=== PATIENT | male | born 1960 | race Caucasian/White ===

== ENCOUNTER 2018-07-05 14:06 | Inpatient (IN) | payer MEDICARE, BC ==
[2018-07-05] VITALS (8 sets, daily range): BP systolic 125–146; BP diastolic 59–79
[~2018-07-05] VITALS: Ht 170.2 cm; Wt 75.0 kg
[~2018-07-05 14:06] MED LIST: LIDOcaine 2% (20 mg/ml) 5ml cardiac syringe ONE; albumin (human) 25% 100 ML IV solution IV ONE; aminocaproic acid 250 MG/1 ML inj. ONE; calcium chloride 100 MG/1 ML inj IV ONE; heparin 10,000 units/1 ML INJ ONE; magnesium sulf 1 GM/2 ML ONE; papaverine 30 mg/ml 2ml inj. ONE; phenylephrine 10mg/ml inj. ONE; potassium Cl 2 mEq/ml inj IV ONE; sodium bicarbonate (8.4%) 1 mEq/ml syringe ONE
[2018-07-05] MEDS ORDERED: diphenhydrAMINE 25mg capsule PO PRN (14:35)
[2018-07-05] MEDS ORDERED: LORazepam 0.5 MG tablet PO PRN (14:35)
[2018-07-05] MEDS ORDERED: MOME17SP NS (14:47)
[2018-07-05] MEDS ORDERED: CARV3.12 PO (14:47)
[2018-07-05] MEDS ORDERED: GARL1TAB2 PO (14:47)
[2018-07-05] MEDS ORDERED: OMEG1CAP2 PO (14:47)
[2018-07-05] MEDS ORDERED: DICL100G15 TOP (14:47)
[2018-07-05] MEDS ORDERED: FA/M1TAB PO (14:47)
[2018-07-05] MEDS ORDERED: ASPI81TA52 PO (14:47)
[2018-07-05] MEDS ORDERED: lidoderm 5% patch TD (14:47)
[2018-07-05] MEDS ORDERED: MELO-102 PO (14:47)
[2018-07-05] MEDS ORDERED: LIDOcaine/PRILOcaine 5gm cream TP ONE (15:05)
[2018-07-05] MEDS: normal saline 1000ml 1,000 ML IV SCH (15:20)
[2018-07-05] MEDS ORDERED: nitroGLYCERIN-Tridil 50MG/D5W 250 ML IV ONE (15:32)
[2018-07-05] MEDS ORDERED: fentaNYL/PF 50MCG/1 ML 2ML syringe ONE (15:33)
[2018-07-05] MEDS ORDERED: iohexol 350MG/ML 100ml bottle IV ONE ×2 (15:33→16:24)
[2018-07-05] MEDS ORDERED: verapamil 2.5 mg/ml inj IV ONE (15:33)
[2018-07-05] MEDS ORDERED: midazolam 2 mg/2 ml injection ONE (15:33)
[2018-07-05] MEDS ORDERED: LIDOcaine 1% (10mg/ml)w/preservative injection 20ml MDV ONE (15:33)
[2018-07-05] MEDS ORDERED: heparin 1,000unit/ml 10ml vial 10 ML ONE (15:33)
[2018-07-05] MEDS ORDERED: proCHLORperazine 10 MG/2 ml inj IV PRN (17:05)
[2018-07-05] MEDS ORDERED: OXAZEpam 15mg capsule PO PRN (17:05)
[2018-07-05] MEDS ORDERED: ondansetron/PF 4mg/2ml inj IV PRN (17:05)
[2018-07-05] MEDS ORDERED: dextrose 50%-water 50ml dispensing syringe IV PRN (17:15)
[2018-07-05] MEDS ORDERED: MESSAGE TO NURSING PO ONE ×4 (17:15)
[2018-07-05] MEDS ORDERED: metoprolol tartrate 25mg tablet PO SCH (20:00)
[2018-07-05 20:27] LABS: HEMOGLOBIN 14.2 g/dl (14.0-17.9); MEAN CORPUSCULAR HEMOGLOBIN 31.9 PG (27.0-31.0); MEAN CORPUSCULAR HGB CONC 34.6 % (33.0-36.5); MEAN CORPUSCULAR VOLUME 92.4 FL (78-98); MEAN PLATELET VOLUME 8.8 FL (7.4-10.4); PLATELET COUNT 192 X10'3 (140-440); RED BLOOD COUNT 4.44 X10'6 (4.70-6.10); RED CELL DISTRIBUTION WIDTH 12.9 % (11.5-14.5); WHITE BLOOD COUNT 8.9 X10'3 (4.5-11.0)
[2018-07-05 20:36] LABS: ALANINE AMINOTRANSFERASE 48 U/L (12-78); ALBUMIN 3.4 G/DL (3.4-5.0); ALBUMIN/GLOBULIN RATIO 1.1 (1.1-1.5); ALKALINE PHOSPHATASE 76 IU/L (46-116); ANION GAP 10 (8-16); ASPARTATE AMINO TRANSFERASE 21 U/L (10-37); BILIRUBIN,TOTAL 0.4 MG/DL (0.1-1.0); BLOOD UREA NITROGEN 23 MG/DL (7-18); BUN/CREATININE RATIO 21.9 (5.4-32.0); CALCIUM 8.7 MG/DL (8.5-10.1); CHLORIDE 102 MMOL/L (99-107); CREATININE 1.05 MG/DL (0.60-1.10); GLUCOSE 130 MG/DL (70-104); POTASSIUM 3.7 MMOL/L (3.5-5.1); SODIUM 137 MMOL/L (135-145); TOTAL PROTEIN 6.6 G/DL (6.4-8.2); eGFR 73 ML/MIN
[2018-07-05 20:56] LABS: PROTHROMBIN TIME 10.6 SECONDS (9.0-12.0)
[2018-07-05 20:57] LABS: PARTIAL THROMBOPLASTIN TIME 30 SECONDS (22-32)
[2018-07-05 21:04] LABS: HEMOGLOBIN A1C 6.1 % (4.5-6.2)
[2018-07-05] MEDS: carVEDilol 3.125mg tablet PO SCH (22:31)
[2018-07-06 03:00] VITALS: BP 142/57
[2018-07-06] MEDS: normal saline 1000ml 1,000 ML IV SCH ×2 (03:12→11:16)
[2018-07-06 05:09] LABS: BASOPHILS % (AUTO) 0.3 % (0-1); EOSINOPHILS # (AUTO) 0.5 X10'3 (0-0.9); EOSINOPHILS % (AUTO) 5.2 % (0-6); HEMATOCRIT 43.7 % (42.0-52.0); HEMOGLOBIN 14.8 g/dl (14.0-17.9); LYMPHOCYTES # (AUTO) 3.2 X10'3 (1.1-4.8); LYMPHOCYTES % (AUTO) 35.6 % (21-51); MEAN CORPUSCULAR HEMOGLOBIN 31.3 PG (27.0-31.0); MEAN CORPUSCULAR HGB CONC 33.9 % (33.0-36.5); MEAN CORPUSCULAR VOLUME 92.2 FL (78-98); MEAN PLATELET VOLUME 9.2 FL (7.4-10.4); MONOCYTES # (AUTO) 0.7 X10'3 (0-0.9); MONOCYTES % (AUTO) 7.4 % (2-12); NEUTROPHILS # (AUTO) 4.6 X10'3 (1.8-7.7); NEUTROPHILS % (AUTO) 51.5 % (42-75); PLATELET COUNT 199 X10'3 (140-440); RED BLOOD COUNT 4.74 X10'6 (4.70-6.10); RED CELL DISTRIBUTION WIDTH 13.1 % (11.5-14.5)
[2018-07-06 05:22] LABS: ALBUMIN 3.6 G/DL (3.4-5.0); ANION GAP 11 (8-16); BLOOD UREA NITROGEN 19 MG/DL (7-18); BUN/CREATININE RATIO 18.8 (5.4-32.0); CHLORIDE 104 MMOL/L (99-107); CREATININE 1.01 MG/DL (0.60-1.10); GLUCOSE 96 MG/DL (70-104); POTASSIUM 4.2 MMOL/L (3.5-5.1); SODIUM 138 MMOL/L (135-145); TOTAL CARBON DIOXIDE 23.5 MMOL/L (24-32); eGFR 76 ML/MIN
[2018-07-06 05:26] LABS: PROTHROMBIN TIME 10.4 SECONDS (9.0-12.0)
[2018-07-06 06:00] VITALS: BP 142/60
[2018-07-06] MEDS ORDERED: vancomycin/NS 1 GM ADD-VANTAGE 250 ML IV ONE (06:00)
[2018-07-06] MEDS ORDERED: cefazolin/dext.iso 2gm/50ml 50 ML IV ONE (06:00)
[2018-07-06] MEDS ORDERED: non-formulary drug (Omega-3 Fatty Acids/Fish Oil (Fish Oil 1,000 mg Capsule) 1 TAB) PO SCH (08:00)
[2018-07-06] MEDS ORDERED: atorvastatin 20mg tablet PO SCH (08:00)
[2018-07-06] MEDS ORDERED: aspirin 81mg tablet.DR PO SCH (08:00)
[2018-07-06] MEDS ORDERED: mupirocin 2% ointment 22GM NS SCH (08:00)
[2018-07-06] MEDS: fluticasone nasal spray 16GM bottle NS SCH (08:00)
[2018-07-06] MEDS ORDERED: insulin Lispro (HumaLOG) vial - multi-dose SQ SCH (09:00)
[2018-07-06] MEDS: carVEDilol 3.125mg tablet PO SCH ×2 (09:53→21:06)
[2018-07-06] MEDS: multivitamins, therapeutics tablet PO SCH (09:55)
[2018-07-06] MEDS: LIDOcaine 5% patch TP SCH (09:59)
[2018-07-06] MEDS ORDERED: MESSAGE TO NURSING PO ONE (10:00)
[2018-07-06 11:00] VITALS: BP 130/61
[2018-07-06 11:16] LABS: ABG BASE EXCESS -1.2 mmol/L (-2.0-3.0); ABG HCO3 22.3 mmol/L (22.0-26.0); ABG OXYGEN SATURATION 96.8 % (95-98); ABG PCO2 (T) 33.9 mmHg (35.0-48.0); ABG PH (T) 7.435 (7.350-7.450); ALLEN'S TEST Positive; FCOHb 0.4 % (0.5-1.5); FMetHb 0.1 % (0.3-1.12); FO2Hb 96.3 % (94-100); TOTAL HEMOGLOBIN 15.1 G/dl (14.0-18.0)
[2018-07-06] MEDS ORDERED: albuterol 2.5 MG/3 ML nebule NEB ONE (11:25)
[2018-07-06] MEDS ORDERED: LIDOcaine 5% patch TP ONE (14:50)
[2018-07-06 15:00] VITALS: BP 158/73
[2018-07-06] MEDS ORDERED: ringers solution, lacted 1,000 ML IV ONE (16:10)
[2018-07-06 19:00] VITALS: BP 149/53
[2018-07-06 23:00] VITALS: BP 143/58
[2018-07-07] VITALS (18 sets, daily range): BP systolic 96–159; BP diastolic 50–63
[2018-07-07] MEDS ORDERED: famotidine 20mg tablet PO ONE (05:00)
[2018-07-07] MEDS ORDERED: LORazepam 2 mg/ml vial ONE (05:08)
[2018-07-07] MEDS: insulin regular, human inj. 100 UNITS in normal saline 100ml IV soln 100 ML IV SCH ×4 (06:00→12:15)
[2018-07-07] MEDS ORDERED: LORazepam 2 mg/ml vial IV ONE (06:00)
[2018-07-07] MEDS ORDERED: isoflurane 100ml inhalation liquid IH ONE (06:50)
[2018-07-07] MEDS ORDERED: protamine sulf. 10mg/ml inj. IV ONE (06:50)
[2018-07-07] MEDS ORDERED: INSULIN R 100 UNIT in NS 100ML (1 UNIT/1 ML) BAG IV ONE (06:50)
[2018-07-07] MEDS ORDERED: nitroGLYCERIN in D5W 50mg/250ml (Tridil) infusion IV ONE (06:50)
[2018-07-07] MEDS ORDERED: niCARDipine in NS 40mg/200ml (0.2mg/ml) IVPB IV ONE (06:50)
[2018-07-07] MEDS ORDERED: aminocaproic acid 250 MG/1 ML inj. ONE (06:50)
[2018-07-07] MEDS ORDERED: SUFENTANIL CITRATE 50 MCG/ML 2ml ampule IV ONE (06:55)
[2018-07-07] MEDS ORDERED: propofol inj 20 ML IV ONE (06:56)
[2018-07-07] MEDS ORDERED: rocuronium 10mg/ml inj IV ONE (06:56)
[2018-07-07] MEDS ORDERED: pancuronium br 1mg/ml inj IV ONE (07:35)
[2018-07-07 07:40] LABS: ABG BASE EXCESS -3.4 mmol/L (-2.0-3.0); ABG HCO3 21.4 mmol/L (22.0-26.0); ABG OXYGEN SATURATION 99.4 % (95-98); ABG PCO2 37.7 mmHg (35.0-45.0); ABG PH 7.372 (7.350-7.450); ABG PO2 297.7 mmHg (60.0-100.0); CL (ABG) 110 mmol/L (99-107); FCOHb 0.4 % (0.5-1.5); FMetHb 0.4 % (0.3-1.12); FO2Hb 98.6 % (94-100); GLUCOSE (ABG) 106 mg/dl (70-105); IONIZED CA (ABG) 1.19 mmol/L (1.03-1.32); K (ABG) 3.8 mmol/L (3.3-5.1); NA (ABG) 139 mmol/L (135-145)
[2018-07-07] MEDS ORDERED: papaverine 30 mg/ml 2ml inj. IA ONE (07:54)
[2018-07-07] MEDS ORDERED: heparin 10,000 units/1 ML INJ IR ONE (07:54)
[2018-07-07 08:40] LABS: ABG BASE EXCESS -5.9 mmol/L (-2.0-3.0); ABG HCO3 18.3 mmol/L (22.0-26.0); ABG OXYGEN SATURATION 98.3 % (95-98); ABG PCO2 32.1 mmHg (35.0-45.0); ABG PH 7.374 (7.350-7.450); ABG PO2 130.5 mmHg (60.0-100.0); CL (ABG) 108 mmol/L (99-107); FCOHb 0.4 % (0.5-1.5); FMetHb 0.2 % (0.3-1.12); FO2Hb 97.7 % (94-100); GLUCOSE (ABG) 117 mg/dl (70-105); IONIZED CA (ABG) 1.17 mmol/L (1.03-1.32); K (ABG) 3.9 mmol/L (3.3-5.1); NA (ABG) 136 mmol/L (135-145)
[2018-07-07 09:16] LABS: ACT @ 1.70 U 336 SEC (193-297); ACT @ 2.84 U 439 SEC (260-420); BASELINE ACT 148 SEC (101-148); PATIENT WEIGHT 75.0k KG
[2018-07-07 09:16] LABS: ABG BASE EXCESS -2.2 mmol/L (-2.0-3.0); ABG HCO3 22.2 mmol/L (22.0-26.0); ABG OXYGEN SATURATION 98.9 % (95-98); ABG PCO2 36.8 mmHg (35.0-45.0); ABG PH 7.399 (7.350-7.450); ABG PO2 377.4 mmHg (60.0-100.0); CL (ABG) 107 mmol/L (99-107); FCOHb 0.3 % (0.5-1.5); FMetHb 0.5 % (0.3-1.12); FO2Hb 98.1 % (94-100); GLUCOSE (ABG) 116 mg/dl (70-105); IONIZED CA (ABG) 0.99 mmol/L (1.03-1.32); K (ABG) 4.9 mmol/L (3.3-5.1); NA (ABG) 132 mmol/L (135-145); TOTAL HEMOGLOBIN 10.2 G/dl (14.0-18.0)
[2018-07-07 09:30] LABS: ABG BASE EXCESS 0.6 mmol/L (-2.0-3.0); ABG HCO3 25.2 mmol/L (22.0-26.0); ABG OXYGEN SATURATION 98.8 % (95-98); ABG PCO2 40.3 mmHg (35.0-45.0); ABG PH 7.414 (7.350-7.450); ABG PO2 332.5 mmHg (60.0-100.0); CL (ABG) 107 mmol/L (99-107); FCOHb 0.3 % (0.5-1.5); FMetHb 0.5 % (0.3-1.12); GLUCOSE (ABG) 130 mg/dl (70-105); IONIZED CA (ABG) 1.01 mmol/L (1.03-1.32); K (ABG) 5.5 mmol/L (3.3-5.1); NA (ABG) 134 mmol/L (135-145); TOTAL HEMOGLOBIN 10.3 G/dl (14.0-18.0)
[2018-07-07 10:11] LABS: ABG BASE EXCESS -3.3 mmol/L (-2.0-3.0); ABG HCO3 22.5 mmol/L (22.0-26.0); ABG OXYGEN SATURATION 98.5 % (95-98); ABG PCO2 43.7 mmHg (35.0-45.0); ABG PO2 286.2 mmHg (60.0-100.0); CL (ABG) 98 mmol/L (99-107); FCOHb 0.3 % (0.5-1.5); FMetHb 0.5 % (0.3-1.12); FO2Hb 97.7 % (94-100); GLUCOSE (ABG) 124 mg/dl (70-105); IONIZED CA (ABG) 1.26 mmol/L (1.03-1.32); K (ABG) 4.6 mmol/L (3.3-5.1); NA (ABG) 126 mmol/L (135-145); TOTAL HEMOGLOBIN 9.6 G/dl (14.0-18.0)
[2018-07-07 10:41] LABS: ABG BASE EXCESS -1.3 mmol/L (-2.0-3.0); ABG HCO3 22.9 mmol/L (22.0-26.0); ABG OXYGEN SATURATION 98.5 % (95-98); ABG PCO2 36.6 mmHg (35.0-45.0); ABG PH 7.415 (7.350-7.450); ABG PO2 171.3 mmHg (60.0-100.0); CL (ABG) 109 mmol/L (99-107); FCOHb 0.3 % (0.5-1.5); FMetHb 0.6 % (0.3-1.12); FO2Hb 97.6 % (94-100); GLUCOSE (ABG) 124 mg/dl (70-105); IONIZED CA (ABG) 1.25 mmol/L (1.03-1.32); K (ABG) 4.4 mmol/L (3.3-5.1); NA (ABG) 136 mmol/L (135-145); TOTAL HEMOGLOBIN 11.3 G/dl (14.0-18.0)
[2018-07-07 10:46] LABS: ACTIVATED CLOTTING TIME 130 SEC (101-148)
[2018-07-07] MEDS ORDERED: sodium phosphate inj. 15 MMOL in dextrose 5%-water 150 ML IV PRN (11:00)
[2018-07-07] MEDS ORDERED: normal saline 250ml IV soln 250 ML IV PRN (11:00)
[2018-07-07] MEDS ORDERED: pantoprazole 40 MG vial IV ONE (11:00)
[2018-07-07] MEDS ORDERED: metoclopramide 5 mg/ml inj IV PRN (11:00)
[2018-07-07] MEDS ORDERED: Neutra Phos packet PO PRN (11:00)
[2018-07-07] MEDS ORDERED: DOPamine 400mg/D5W 250ml 250 ML IV PRN ×2 (11:00→11:49)
[2018-07-07] MEDS ORDERED: magnesium 2GM in 50ml NS 50 ML IV PRN (11:00)
[2018-07-07] MEDS ORDERED: ondansetron/PF 4mg/2ml inj IV PRN (11:00)
[2018-07-07] MEDS ORDERED: dextrose 50%-water 50ml dispensing syringe IV PRN (11:00)
[2018-07-07] MEDS ORDERED: potassium Cl 20mEq/100mL bag 100 ML IV PRN ×2 (11:00)
[2018-07-07] MEDS ORDERED: albuterol 2.5 MG/3 ML nebule NEB SCH (11:00)
[2018-07-07] MEDS ORDERED: albumin (Human) 5% 250ml 250 ML IV PRN (11:00)
[2018-07-07] MEDS ORDERED: insulin regular, human inj. 100 UNITS in normal saline 100ml IV soln 100 ML IV SCH ×2 (11:00)
[2018-07-07] MEDS ORDERED: nitroGLYCERIN-Tridil 50MG/D5W 250 ML IV PRN ×2 (11:00→11:49)
[2018-07-07] MEDS ORDERED: niCARDipine-NS 40mg/200ml IVPB 200 ML IV PRN ×2 (11:00→11:50)
[2018-07-07] MEDS ORDERED: magnesium hydroxide 30ml (MOM) UD suspension PO PRN (11:00)
[2018-07-07] MEDS ORDERED: sodium phosphate inj. 30 MMOL in dextrose 5%-water 250 ML IV PRN (11:00)
[2018-07-07] MEDS ORDERED: acetaminophen 325mg tablet PO PRN (11:00)
[2018-07-07] MEDS ORDERED: morphine 4 MG/ML inj SYRINge IV PRN ×2 (11:00)
[2018-07-07 11:26] LABS: ABG HCO3 26.4 mmol/L (22.0-26.0); ABG PCO2 (T) 44.1 mmHg (35.0-48.0); ABG PH (T) 7.393 (7.350-7.450); ABG PO2 (T) 122.1 mmHg (83-108); FCOHb 0.1 % (0.5-1.5); FMetHb 0.3 % (0.3-1.12); FO2Hb 97.6 % (94-100); MINUTE VOLUME 6 L/min; PATIENT TEMPERATURE 36.7; PEEP 5 cm H2O; RESPIRATORY RATE 12 b/min; RESPIRATORY RATE (OBSERVED) 12 b/min; TIDAL VOLUME 550 mL; TOTAL HEMOGLOBIN 13.8 G/dl (14.0-18.0)
[2018-07-07 11:50] LABS: BASOPHILS % (AUTO) 0 % (0-1); EOSINOPHILS # (AUTO) 0.1 X10'3 (0-0.9); EOSINOPHILS % (AUTO) 0.7 % (0-6); HEMATOCRIT 37.9 % (42.0-52.0); LYMPHOCYTES # (AUTO) 1.4 X10'3 (1.1-4.8); LYMPHOCYTES % (AUTO) 8.1 % (21-51); MEAN CORPUSCULAR HEMOGLOBIN 31.7 PG (27.0-31.0); MEAN CORPUSCULAR HGB CONC 34.3 % (33.0-36.5); MEAN CORPUSCULAR VOLUME 92.5 FL (78-98); MEAN PLATELET VOLUME 8.9 FL (7.4-10.4); MONOCYTES # (AUTO) 0.6 X10'3 (0-0.9); MONOCYTES % (AUTO) 3.1 % (2-12); NEUTROPHILS # (AUTO) 15.7 X10'3 (1.8-7.7); NEUTROPHILS % (AUTO) 88.1 % (42-75); PLATELET COUNT 143 X10'3 (140-440); RED BLOOD COUNT 4.09 X10'6 (4.70-6.10); RED CELL DISTRIBUTION WIDTH 13.1 % (11.5-14.5); WHITE BLOOD COUNT 17.8 X10'3 (4.5-11.0)
[2018-07-07] MEDS ORDERED: albuterol 2.5 MG/3 ML nebule NEB PRN (11:55)
[2018-07-07 12:13] LABS: INR 1.2 INR; PARTIAL THROMBOPLASTIN TIME 25 SECONDS (22-32); PROTHROMBIN TIME 11.6 SECONDS (9.0-12.0)
[2018-07-07] MEDS: fluticasone nasal spray 16GM bottle NS SCH (12:17)
[2018-07-07] MEDS: LIDOcaine 5% patch TP SCH (12:17)
[2018-07-07 12:18] LABS: ALANINE AMINOTRANSFERASE 36 U/L (12-78); ALBUMIN 2.9 G/DL (3.4-5.0); ALBUMIN/GLOBULIN RATIO 1.2 (1.1-1.5); ALKALINE PHOSPHATASE 57 IU/L (46-116); ANION GAP 8 (8-16); ASPARTATE AMINO TRANSFERASE 32 U/L (10-37); BILIRUBIN,TOTAL 0.8 MG/DL (0.1-1.0); BLOOD UREA NITROGEN 14 MG/DL (7-18); BUN/CREATININE RATIO 14.3 (5.4-32.0); CALCIUM 8.8 MG/DL (8.5-10.1); CHLORIDE 109 MMOL/L (99-107); CREATININE 0.98 MG/DL (0.60-1.10); GLUCOSE 120 MG/DL (70-104); MAGNESIUM 2.8 MG/DL (1.5-2.4); SODIUM 144 MMOL/L (135-145); TOTAL CARBON DIOXIDE 27.1 MMOL/L (24-32); TOTAL PROTEIN 5.3 G/DL (6.4-8.2); eGFR 79 ML/MIN
[2018-07-07] MEDS: multivitamins, therapeutics tablet PO SCH (12:18)
[2018-07-07] MEDS: mupirocin 2% nasal ointment 1gm UD NS SCH ×3 (12:19→20:30)
[2018-07-07 12:20] LABS: POTASSIUM 3.8 MMOL/L (3.5-5.1)
[2018-07-07] MEDS: sodium chloride 0.45% 1,000 ML IV SCH (12:52)
[2018-07-07] MEDS: insulin Lispro (HumaLOG) vial - multi-dose SQ SCH ×2 (13:00→17:17)
[2018-07-07] MEDS: potassium Cl 20mEq/100mL bag 100 ML IV PRN ×4 (13:27→19:51)
[2018-07-07] MEDS: ceFAZolin 1GM/D5W- ADD-VANTAGE 50 ML IV SCH (15:47)
[2018-07-07 16:20] LABS: ABG BASE EXCESS -2.8 mmol/L (-2.0-3.0); ABG HCO3 21.9 mmol/L (22.0-26.0); ABG OXYGEN SATURATION 96.8 % (95-98); ABG PCO2 (T) 37.5 mmHg (35.0-48.0); ABG PH (T) 7.382 (7.350-7.450); FCOHb 0.3 % (0.5-1.5); FMetHb 0.2 % (0.3-1.12); FO2Hb 96.3 % (94-100); MINUTE VOLUME 9 L/min; PATIENT TEMPERATURE 36.7; PEEP 5 cm H2O; RESPIRATORY RATE (OBSERVED) 15 b/min; TOTAL HEMOGLOBIN 14.3 G/dl (14.0-18.0)
[2018-07-07 17:49] LABS: BASOPHILS % (AUTO) 0 % (0-1); EOSINOPHILS % (AUTO) 0 % (0-6); HEMATOCRIT 35.2 % (42.0-52.0); MEAN CORPUSCULAR HEMOGLOBIN 31.7 PG (27.0-31.0); MEAN CORPUSCULAR HGB CONC 34.1 % (33.0-36.5); MEAN CORPUSCULAR VOLUME 92.9 FL (78-98); MEAN PLATELET VOLUME 9.2 FL (7.4-10.4); MONOCYTES # (AUTO) 0.4 X10'3 (0-0.9); MONOCYTES % (AUTO) 2.8 % (2-12); NEUTROPHILS # (AUTO) 14.6 X10'3 (1.8-7.7); NEUTROPHILS % (AUTO) 91.2 % (42-75); PLATELET COUNT 141 X10'3 (140-440); RED BLOOD COUNT 3.79 X10'6 (4.70-6.10)
[2018-07-07 17:51] LABS: ALBUMIN 3.2 G/DL (3.4-5.0); ANION GAP 7 (8-16); BLOOD UREA NITROGEN 15 MG/DL (7-18); BUN/CREATININE RATIO 14.9 (5.4-32.0); CALCIUM 8.4 MG/DL (8.5-10.1); CHLORIDE 112 MMOL/L (99-107); CREATININE 1.01 MG/DL (0.60-1.10); GLUCOSE 165 MG/DL (70-104); MAGNESIUM 2.1 MG/DL (1.5-2.4); PHOSPHORUS 2.8 MG/DL (2.3-4.5); POTASSIUM 3.9 MMOL/L (3.5-5.1); SODIUM 143 MMOL/L (135-145); TOTAL CARBON DIOXIDE 24.3 MMOL/L (24-32); eGFR 76 ML/MIN
[2018-07-07] MEDS: docusate sod 100mg capsule PO SCH (20:05)
[2018-07-07] MEDS: vancomycin/NS 1 GM ADD-VANTAGE 250 ML IV SCH (21:01)
[2018-07-07 23:10] LABS: BASOPHILS % (AUTO) 0.1 % (0-1); EOSINOPHILS # (AUTO) 0.3 X10'3 (0-0.9); EOSINOPHILS % (AUTO) 1.7 % (0-6); HEMATOCRIT 35.9 % (42.0-52.0); HEMOGLOBIN 12.2 g/dl (14.0-17.9); LYMPHOCYTES # (AUTO) 1.3 X10'3 (1.1-4.8); LYMPHOCYTES % (AUTO) 8.1 % (21-51); MEAN CORPUSCULAR HEMOGLOBIN 31.5 PG (27.0-31.0); MEAN CORPUSCULAR HGB CONC 33.9 % (33.0-36.5); MEAN CORPUSCULAR VOLUME 92.8 FL (78-98); MEAN PLATELET VOLUME 8.6 FL (7.4-10.4); MONOCYTES # (AUTO) 0.7 X10'3 (0-0.9); MONOCYTES % (AUTO) 4.1 % (2-12); NEUTROPHILS # (AUTO) 13.9 X10'3 (1.8-7.7); PLATELET COUNT 145 X10'3 (140-440); RED BLOOD COUNT 3.87 X10'6 (4.70-6.10); RED CELL DISTRIBUTION WIDTH 13.3 % (11.5-14.5); WHITE BLOOD COUNT 16.1 X10'3 (4.5-11.0)
[2018-07-07 23:20] LABS: ALBUMIN 3.2 G/DL (3.4-5.0); ANION GAP 11 (8-16); BLOOD UREA NITROGEN 13 MG/DL (7-18); BUN/CREATININE RATIO 13.7 (5.4-32.0); CALCIUM 8.4 MG/DL (8.5-10.1); CHLORIDE 110 MMOL/L (99-107); CREATININE 0.95 MG/DL (0.60-1.10); GLUCOSE 122 MG/DL (70-104); MAGNESIUM 1.8 MG/DL (1.5-2.4); POTASSIUM 3.8 MMOL/L (3.5-5.1); SODIUM 143 MMOL/L (135-145); TOTAL CARBON DIOXIDE 21.9 MMOL/L (24-32); eGFR 81 ML/MIN
[2018-07-08] VITALS (24 sets, daily range): BP systolic 100–146; BP diastolic 48–67
[2018-07-08] MEDS: ceFAZolin 1GM/D5W- ADD-VANTAGE 50 ML IV SCH ×3 (00:21→15:31)
[2018-07-08] MEDS: HYDROcodone/acetaminophen 10/325mg tab PO PRN ×3 (00:21→22:31)
[2018-07-08] MEDS: magnesium 4gm in 100ml NS 100 ML IV PRN (00:45)
[2018-07-08] MEDS: potassium Cl 20mEq/100mL bag 100 ML IV PRN ×2 (02:17→04:10)
[2018-07-08 04:12] LABS: BASOPHILS % (AUTO) 0 % (0-1); EOSINOPHILS # (AUTO) 0.4 X10'3 (0-0.9); HEMOGLOBIN 11.8 g/dl (14.0-17.9); LYMPHOCYTES # (AUTO) 1.4 X10'3 (1.1-4.8); LYMPHOCYTES % (AUTO) 7.4 % (21-51); MEAN CORPUSCULAR HEMOGLOBIN 31.4 PG (27.0-31.0); MEAN CORPUSCULAR HGB CONC 33.7 % (33.0-36.5); MEAN CORPUSCULAR VOLUME 93.1 FL (78-98); MEAN PLATELET VOLUME 9.3 FL (7.4-10.4); MONOCYTES # (AUTO) 1.1 X10'3 (0-0.9); MONOCYTES % (AUTO) 5.8 % (2-12); NEUTROPHILS % (AUTO) 84.8 % (42-75); PLATELET COUNT 139 X10'3 (140-440); RED BLOOD COUNT 3.76 X10'6 (4.70-6.10); RED CELL DISTRIBUTION WIDTH 13.3 % (11.5-14.5); WHITE BLOOD COUNT 18.8 X10'3 (4.5-11.0)
[2018-07-08 04:27] LABS: INR 1.1 INR; PARTIAL THROMBOPLASTIN TIME 28 SECONDS (22-32); PROTHROMBIN TIME 11.1 SECONDS (9.0-12.0)
[2018-07-08 04:30] LABS: ALANINE AMINOTRANSFERASE 32 U/L (12-78); ALBUMIN 3.2 G/DL (3.4-5.0); ALBUMIN/GLOBULIN RATIO 1.3 (1.1-1.5); ALKALINE PHOSPHATASE 48 IU/L (46-116); ANION GAP 11 (8-16); ASPARTATE AMINO TRANSFERASE 35 U/L (10-37); BILIRUBIN,TOTAL 0.5 MG/DL (0.1-1.0); BLOOD UREA NITROGEN 13 MG/DL (7-18); BUN/CREATININE RATIO 14.9 (5.4-32.0); CALCIUM 8.8 MG/DL (8.5-10.1); CHLORIDE 108 MMOL/L (99-107); CREATININE 0.87 MG/DL (0.60-1.10); GLUCOSE 132 MG/DL (70-104); MAGNESIUM 2.9 MG/DL (1.5-2.4); PHOSPHORUS 4.1 MG/DL (2.3-4.5); POTASSIUM 3.9 MMOL/L (3.5-5.1); SODIUM 141 MMOL/L (135-145); TOTAL CARBON DIOXIDE 21.7 MMOL/L (24-32); TOTAL PROTEIN 5.6 G/DL (6.4-8.2); eGFR 90 ML/MIN
[2018-07-08] MEDS: insulin regular, human inj. 100 UNITS in normal saline 100ml IV soln 100 ML IV SCH ×2 (06:00)
[2018-07-08] MEDS ORDERED: dextrose 50%-water 50ml dispensing syringe IV PRN ×2 (07:55)
[2018-07-08] MEDS ORDERED: MESSAGE TO PHARMACY PO ONE (07:55)
[2018-07-08] MEDS ORDERED: glucagon, human recombinant 1mg kit SUBCUT PRN (07:55)
[2018-07-08] MEDS ORDERED: dextrose ORAL solution 15 GM/59 ML bottle PO PRN ×2 (07:55)
[2018-07-08] MEDS ORDERED: insulin Lispro (HumaLOG) vial - multi-dose SQ SCH (07:55)
[2018-07-08] MEDS: atorvastatin 10mg tablet PO SCH (08:00)
[2018-07-08] MEDS: aspirin 325mg tablet, delayed-release (Ecotrin) PO SCH (08:16)
[2018-07-08] MEDS: metoprolol tartrate 12.5mg (1/2 tablet) PO SCH ×2 (08:16→20:05)
[2018-07-08] MEDS: multivitamins, therapeutics tablet PO SCH (08:17)
[2018-07-08] MEDS: docusate sod 100mg capsule PO SCH ×2 (08:17→20:05)
[2018-07-08] MEDS: mupirocin 2% nasal ointment 1gm UD NS SCH ×2 (08:17→20:00)
[2018-07-08] MEDS: LIDOcaine 5% patch TP SCH (08:19)
[2018-07-08] MEDS: vancomycin/NS 1 GM ADD-VANTAGE 250 ML IV SCH ×2 (08:21→20:05)
[2018-07-08] MEDS: NASONEX BOTHNARES SCH (14:09)
[2018-07-08] MEDS: insulin glargine (Lantus) pen - multi-dose SQ SCH (21:00)
[2018-07-09] VITALS (24 sets, daily range): BP systolic 91–133; BP diastolic 55–69
[2018-07-09] MEDS: ceFAZolin 1GM/D5W- ADD-VANTAGE 50 ML IV SCH (00:40)
[2018-07-09 03:07] LABS: BASOPHILS % (AUTO) 0 % (0-1); EOSINOPHILS # (AUTO) 0.3 X10'3 (0-0.9); EOSINOPHILS % (AUTO) 1.6 % (0-6); HEMATOCRIT 32.3 % (42.0-52.0); HEMOGLOBIN 10.9 g/dl (14.0-17.9); LYMPHOCYTES # (AUTO) 1.8 X10'3 (1.1-4.8); MEAN CORPUSCULAR HEMOGLOBIN 31.6 PG (27.0-31.0); MEAN CORPUSCULAR HGB CONC 33.6 % (33.0-36.5); MEAN CORPUSCULAR VOLUME 93.9 FL (78-98); MEAN PLATELET VOLUME 9.4 FL (7.4-10.4); MONOCYTES % (AUTO) 5.9 % (2-12); NEUTROPHILS # (AUTO) 14.6 X10'3 (1.8-7.7); NEUTROPHILS % (AUTO) 82.5 % (42-75); PLATELET COUNT 133 X10'3 (140-440); RED BLOOD COUNT 3.44 X10'6 (4.70-6.10); RED CELL DISTRIBUTION WIDTH 13.3 % (11.5-14.5); WHITE BLOOD COUNT 17.7 X10'3 (4.5-11.0)
[2018-07-09 03:13] LABS: ANION GAP 6 (8-16); BLOOD UREA NITROGEN 21 MG/DL (7-18); BUN/CREATININE RATIO 22.3 (5.4-32.0); CALCIUM 8.5 MG/DL (8.5-10.1); CHLORIDE 104 MMOL/L (99-107); CREATININE 0.94 MG/DL (0.60-1.10); GLUCOSE 129 MG/DL (70-104); PHOSPHORUS 3.4 MG/DL (2.3-4.5); POTASSIUM 4.3 MMOL/L (3.5-5.1); SODIUM 137 MMOL/L (135-145); TOTAL CARBON DIOXIDE 26.6 MMOL/L (24-32); eGFR 82 ML/MIN
[2018-07-09] MEDS: mupirocin 2% nasal ointment 1gm UD NS SCH (08:00)
[2018-07-09] MEDS: LIDOcaine 5% patch TP SCH (08:00)
[2018-07-09] MEDS: metoprolol tartrate 12.5mg (1/2 tablet) PO SCH (08:24)
[2018-07-09] MEDS: multivitamins, therapeutics tablet PO SCH (08:24)
[2018-07-09] MEDS: atorvastatin 10mg tablet PO SCH (08:25)
[2018-07-09] MEDS: docusate sod 100mg capsule PO SCH ×2 (08:25→20:39)
[2018-07-09] MEDS: pantoprazole 40mg Tablet.DR PO SCH (08:26)
[2018-07-09] MEDS: aspirin 325mg tablet, delayed-release (Ecotrin) PO SCH (08:26)
[2018-07-09] MEDS: NASONEX BOTHNARES SCH (08:27)
[2018-07-09] MEDS: HYDROcodone/acetaminophen 10/325mg tab PO PRN (08:55)
[2018-07-09] MEDS ORDERED: magnesium hydroxide 30ml (MOM) UD suspension PO ONE (11:50)
[2018-07-09] MEDS: sodium chloride 0.45% 1,000 ML IV SCH (12:05)
[2018-07-09] MEDS: insulin glargine (Lantus) pen - multi-dose SQ SCH (18:37)
[2018-07-09] MEDS: carVEDilol 3.125mg tablet PO SCH (20:39)
[2018-07-10] VITALS (24 sets, daily range): BP systolic 90–143; BP diastolic 55–75
[2018-07-10 02:20] LABS: BASOPHILS % (AUTO) 0.2 % (0-1); EOSINOPHILS % (AUTO) 0.1 % (0-6); HEMATOCRIT 32.2 % (42.0-52.0); HEMOGLOBIN 10.9 g/dl (14.0-17.9); LYMPHOCYTES # (AUTO) 2.8 X10'3 (1.1-4.8); LYMPHOCYTES % (AUTO) 18.6 % (21-51); MEAN CORPUSCULAR HEMOGLOBIN 31.7 PG (27.0-31.0); MEAN CORPUSCULAR HGB CONC 33.9 % (33.0-36.5); MEAN CORPUSCULAR VOLUME 93.6 FL (78-98); MONOCYTES # (AUTO) 1.1 X10'3 (0-0.9); MONOCYTES % (AUTO) 7.3 % (2-12); NEUTROPHILS # (AUTO) 11.2 X10'3 (1.8-7.7); NEUTROPHILS % (AUTO) 73.8 % (42-75); PLATELET COUNT 148 X10'3 (140-440); RED BLOOD COUNT 3.44 X10'6 (4.70-6.10); RED CELL DISTRIBUTION WIDTH 13.4 % (11.5-14.5); WHITE BLOOD COUNT 15.2 X10'3 (4.5-11.0)
[2018-07-10 02:33] LABS: ALBUMIN 2.9 G/DL (3.4-5.0); ANION GAP 9 (8-16); BLOOD UREA NITROGEN 22 MG/DL (7-18); BUN/CREATININE RATIO 26.2 (5.4-32.0); CALCIUM 8.7 MG/DL (8.5-10.1); CHLORIDE 102 MMOL/L (99-107); CREATININE 0.84 MG/DL (0.60-1.10); GLUCOSE 106 MG/DL (70-104); MAGNESIUM 1.8 MG/DL (1.5-2.4); PHOSPHORUS 3.5 MG/DL (2.3-4.5); POTASSIUM 4.1 MMOL/L (3.5-5.1); SODIUM 139 MMOL/L (135-145); TOTAL CARBON DIOXIDE 27.7 MMOL/L (24-32); eGFR > 90 ML/MIN
[2018-07-10] MEDS: magnesium 4gm in 100ml NS 100 ML IV PRN (03:32)
[2018-07-10] MEDS: NASONEX BOTHNARES SCH (07:22)
[2018-07-10] MEDS: carVEDilol 3.125mg tablet PO SCH ×2 (07:23→20:11)
[2018-07-10] MEDS: aspirin 81mg tablet.DR PO SCH (07:23)
[2018-07-10] MEDS: pantoprazole 40mg Tablet.DR PO SCH (07:23)
[2018-07-10] MEDS: docusate sod 100mg capsule PO SCH ×2 (07:23→20:10)
[2018-07-10] MEDS: atorvastatin 10mg tablet PO SCH (07:23)
[2018-07-10] MEDS: multivitamins, therapeutics tablet PO SCH (07:23)
[2018-07-10] MEDS: LIDOcaine 5% patch TP SCH ×2 (07:24→07:28)
[2018-07-10] MEDS ORDERED: potassium Cl 20 mEq SR tablet PO PRN ×2 (11:00)
[2018-07-10] MEDS ORDERED: magnesium Cl slow-release 64mg tablet PO PRN (11:00)
[2018-07-10] MEDS: insulin glargine (Lantus) pen - multi-dose SQ SCH (21:00)
[2018-07-10] MEDS: HYDROcodone/acetaminophen 10/325mg tab PO PRN (21:58)
[2018-07-11] VITALS (10 sets, daily range): BP systolic 93–136; BP diastolic 52–71
[2018-07-11 05:12] LABS: BASOPHILS % (AUTO) 0.2 % (0-1); EOSINOPHILS # (AUTO) 0.4 X10'3 (0-0.9); EOSINOPHILS % (AUTO) 3.6 % (0-6); HEMATOCRIT 34.3 % (42.0-52.0); HEMOGLOBIN 11.8 g/dl (14.0-17.9); LYMPHOCYTES # (AUTO) 3.8 X10'3 (1.1-4.8); LYMPHOCYTES % (AUTO) 30.7 % (21-51); MEAN CORPUSCULAR HEMOGLOBIN 31.9 PG (27.0-31.0); MEAN CORPUSCULAR HGB CONC 34.3 % (33.0-36.5); MEAN PLATELET VOLUME 9.1 FL (7.4-10.4); MONOCYTES # (AUTO) 0.9 X10'3 (0-0.9); MONOCYTES % (AUTO) 7.4 % (2-12); NEUTROPHILS # (AUTO) 7.3 X10'3 (1.8-7.7); NEUTROPHILS % (AUTO) 58.1 % (42-75); PLATELET COUNT 196 X10'3 (140-440); RED BLOOD COUNT 3.69 X10'6 (4.70-6.10); RED CELL DISTRIBUTION WIDTH 13.4 % (11.5-14.5); WHITE BLOOD COUNT 12.5 X10'3 (4.5-11.0)
[2018-07-11 05:31] LABS: ALBUMIN 2.9 G/DL (3.4-5.0); ANION GAP 9 (8-16); BLOOD UREA NITROGEN 24 MG/DL (7-18); BUN/CREATININE RATIO 25.8 (5.4-32.0); CALCIUM 8.6 MG/DL (8.5-10.1); CHLORIDE 102 MMOL/L (99-107); CREATININE 0.93 MG/DL (0.60-1.10); GLUCOSE 98 MG/DL (70-104); PHOSPHORUS 3.8 MG/DL (2.3-4.5); POTASSIUM 3.9 MMOL/L (3.5-5.1); SODIUM 138 MMOL/L (135-145); TOTAL CARBON DIOXIDE 27.5 MMOL/L (24-32); eGFR 83 ML/MIN
[2018-07-11] MEDS: LIDOcaine 5% patch TP SCH (07:56)
[2018-07-11] MEDS: docusate sod 100mg capsule PO SCH (07:56)
[2018-07-11] MEDS: aspirin 81mg tablet.DR PO SCH (07:56)
[2018-07-11] MEDS: multivitamins, therapeutics tablet PO SCH (07:56)
[2018-07-11] MEDS: atorvastatin 10mg tablet PO SCH (07:56)
[2018-07-11] MEDS: carVEDilol 3.125mg tablet PO SCH (07:56)
[2018-07-11] MEDS: pantoprazole 40mg Tablet.DR PO SCH (07:56)
[2018-07-11] MEDS: NASONEX BOTHNARES SCH (08:08)
[2018-07-11] MEDS: potassium Cl 20mEq/100mL bag 100 ML IV PRN (08:10)
[2018-07-11] MEDS ORDERED: COL100C PO (09:56)
== END 2018-07-11 11:00 | disposition home health service (06) | DRG 234 ==
LOC: SSTAY O 14:06 → PCU 3S 17:15 → SSTAY O 17:15 → PCU 3S 19:12 → ICU 2S 07-07 11:10
PROVIDERS: ADMIT Internal Medicine Interventional Cardiology; ATTEND Internal Medicine Interventional Cardiology
PROC: 4A023N7 Measurement of Cardiac Sampling and Pressure, Left Heart, Percutaneous Approach (ICD-10-PCS; 2018-07-05)
PROC: B2111ZZ Fluoroscopy of Multiple Coronary Arteries using Low Osmolar Contrast (ICD-10-PCS; 2018-07-05)
PROC: B2151ZZ Fluoroscopy of Left Heart using Low Osmolar Contrast (ICD-10-PCS; 2018-07-05)
PROC: 02100Z8 Bypass Coronary Artery, One Artery from Right Internal Mammary, Open Approach (ICD-10-PCS; 2018-07-07)
PROC: B24BZZ4 Ultrasonography of Heart with Aorta, Transesophageal (ICD-10-PCS; 2018-07-07)
PROC: 5A1221Z Performance of Cardiac Output, Continuous (ICD-10-PCS; 2018-07-07)
PROC: 02HV33Z Insertion of Infusion Device into Superior Vena Cava, Percutaneous Approach (ICD-10-PCS; 2018-07-07)
PROC: 4A133B3 Monitoring of Arterial Pressure, Pulmonary, Percutaneous Approach (ICD-10-PCS; 2018-07-07)
PROC: 02HQ32Z Insertion of Monitoring Device into Right Pulmonary Artery, Percutaneous Approach (ICD-10-PCS; 2018-07-07)
PROC: 02100Z9 Bypass Coronary Artery, One Artery from Left Internal Mammary, Open Approach (ICD-10-PCS; principal; 2018-07-07 06:50)
DX: I25.110 Atherosclerotic heart disease of native coronary artery with unstable angina pectoris (principal); E78.5 Hyperlipidemia, unspecified; K21.9 Gastro-esophageal reflux disease without esophagitis; F17.200 Nicotine dependence, unspecified, uncomplicated; G89.29 Other chronic pain; M54.2 Cervicalgia; M54.9 Dorsalgia, unspecified; I65.23 Occlusion and stenosis of bilateral carotid arteries; Z88.2 Allergy status to sulfonamides; Z88.1 Allergy status to other antibiotic agents; Z88.8 Allergy status to other drugs, medicaments and biological substances; Z91.030 Bee allergy status; Z79.899 Other long term (current) drug therapy; Z79.82 Long term (current) use of aspirin; I25.2 Old myocardial infarction; Z82.49 Family history of ischemic heart disease and other diseases of the circulatory system; Z71.6 Tobacco abuse counseling
CPT/HCPCS: 0232T; 93312; 93325; 93458; 36415; 36600; 71045; 80048; 80053; 82330; 82435; 82803; 82947; 82948; 83036; 83735; 84100; 84132; 84295; 85018; 85025; 85027; 85347; 85384; 85610; 85730; 86885; 86900; 86901; 86920; 87070; 93005; 93880; 93971; 94002; 94060; 94640; 94667; 94668; 94760; 97110; 97116; 97162; 97530; 99152; A4620; A6255; A6258; A6402; A6449; A7000; A7048; C1751; C1769; C9113; G0378; J0690; J1644; J1815; J2001; J2060; J2150; J2250; J2270; J2370; J2440; J2704; J2720; J3010; J3370; J3475; J3480; J3490; J7030; J7060; J7120; P9045; P9047; Q0163; Q9967

== ENCOUNTER 2022-09-30 06:50 | Day surgery (SDC) | payer MEDICARE, BC ==
[2022-09-29 12:57] LABS: BASOPHILS # (AUTO) 0.1 X10'3 (0-0.2); BASOPHILS % (AUTO) 0.6 % (0-1); EOSINOPHILS # (AUTO) 0.2 X10'3 (0-0.9); EOSINOPHILS % (AUTO) 2.8 % (0-6); HEMATOCRIT 45.8 % (42.0-52.0); HEMOGLOBIN 15.6 g/dl (14.0-17.9); LYMPHOCYTES # (AUTO) 3.2 X10'3 (1.1-4.8); LYMPHOCYTES % (AUTO) 38.7 % (21-51); MEAN CORPUSCULAR HEMOGLOBIN 31.8 PG (27.0-31.0); MEAN CORPUSCULAR VOLUME 93.4 FL (78-98); MEAN PLATELET VOLUME 9.2 FL (7.4-10.4); MONOCYTES # (AUTO) 0.7 X10'3 (0-0.9); NEUTROPHILS % (AUTO) 48.9 % (42-75); PLATELET COUNT 174 X10'3 (140-440); RED BLOOD COUNT 4.91 X10'6 (4.70-6.10); RED CELL DISTRIBUTION WIDTH 14.5 % (11.5-14.5); WHITE BLOOD COUNT 8.3 X10'3 (4.5-11.0)
[2022-09-29 13:07] LABS: ALBUMIN 3.9 G/DL (3.4-5.0); ANION GAP 9 (8-16); BLOOD UREA NITROGEN 24 MG/DL (7-18); BUN/CREATININE RATIO 17.6 (5.4-32.0); CALCIUM 9.3 MG/DL (8.5-10.1); CHLORIDE 105 MMOL/L (99-107); CREATININE 1.36 MG/DL (0.60-1.10); GLUCOSE 90 MG/DL (70-104); SODIUM 141 MMOL/L (135-145); TOTAL CARBON DIOXIDE 26.6 MMOL/L (24-32); eGFR 53 ML/MIN
[2022-09-29 13:10] LABS: APTT 28 SECONDS (22-32)
[2022-09-30] VITALS (10 sets, daily range): BP systolic 134–162; BP diastolic 63–86
[~2022-09-30] VITALS: Ht 170.2 cm; Wt 86.2 kg
[~2022-09-30 06:50] MED LIST changes: +ASPI81TA52 PO; +CARV3.12 PO; +COL100C PO; +DICL100G15 TOP; +FA/M1TAB PO; +GARL1TAB2 PO; -LIDOcaine 2% (20 mg/ml) 5ml cardiac syringe ONE; +MELO-102 PO; +MOME17SP5 NS; +OMEG1CAP2 PO; -albumin (human) 25% 100 ML IV solution IV ONE; -aminocaproic acid 250 MG/1 ML inj. ONE; -calcium chloride 100 MG/1 ML inj IV ONE; -heparin 10,000 units/1 ML INJ ONE; +lidoderm 5% patch TD; -magnesium sulf 1 GM/2 ML ONE; -papaverine 30 mg/ml 2ml inj. ONE; -phenylephrine 10mg/ml inj. ONE; -potassium Cl 2 mEq/ml inj IV ONE; -sodium bicarbonate (8.4%) 1 mEq/ml syringe ONE
[2022-09-30] MEDS ORDERED: acetylcysteine 200 MG/ml 4ml vial PO PRN (07:10)
[2022-09-30] MEDS ORDERED: LORazepam 0.5 MG tablet PO PRN (07:10)
[2022-09-30] MEDS ORDERED: diphenhydrAMINE 25mg capsule PO PRN (07:10)
[2022-09-30] MEDS ORDERED: normal saline 1,000 ML IV SCH (07:10)
[2022-09-30] MEDS ORDERED: sodium bicarbonate 1meq/ml syr 150 ML in dextrose 5%-water 850 ML IV ONE (07:10)
[2022-09-30] MEDS ORDERED: SODIUM BICARBONATE 150MEQ IN D5W 1,000 ML IV ONE (07:25)
[2022-09-30] MEDS ORDERED: ROSU40TA22 PO (07:27)
[2022-09-30] MEDS ORDERED: UBID100C16 PO (07:27)
[2022-09-30] MEDS ORDERED: ICOS1CAP PO (07:27)
[2022-09-30] MEDS ORDERED: LIDOcaine 1% 30ml preserv. free vial ONE (10:39)
[2022-09-30] MEDS ORDERED: nitroGLYCERIN-Tridil 50MG/D5W 250 ML IV ONE (10:39)
[2022-09-30] MEDS ORDERED: midazolam 1 mg/ML 2ml injection ONE (10:39)
[2022-09-30] MEDS ORDERED: fentaNYL/PF 50MCG/1 ML 2ML syringe ONE (10:39)
[2022-09-30] MEDS ORDERED: iohexol 350 MG/ML 50ML vial IV ONE (10:39)
[2022-09-30] MEDS ORDERED: iohexol 350MG/ML 100ml bottle IV ONE ×2 (10:40→11:10)
[2022-09-30] MEDS ORDERED: heparin 1,000unit/ml 10ml vial 10 ML ONE (11:01)
--- NOTE | 2022-09-30 12:00 | NUR ---
Patient arrived from [facility]. Report received. Per Leonel RAND, the IV got pulled out in the [facility] director. Pt very sleepy and o2 sats 90% on RA. Will start a new IV now. O2 placed on patient at 2 liters via NC.
== END 2022-09-30 17:00 | disposition home or self-care (01) ==
LOC: SSTAY O 06:50
PROVIDERS: ATTEND Internal Medicine Cardiovascular Disease
DX: R94.39 Abnormal result of other cardiovascular function study (principal); I25.10 Atherosclerotic heart disease of native coronary artery without angina pectoris; E78.5 Hyperlipidemia, unspecified; N40.0 Benign prostatic hyperplasia without lower urinary tract symptoms; Z88.2 Allergy status to sulfonamides; Z95.1 Presence of aortocoronary bypass graft; Z79.82 Long term (current) use of aspirin; Z79.899 Other long term (current) drug therapy; Z87.891 Personal history of nicotine dependence; Z79.01 Long term (current) use of anticoagulants; Z82.49 Family history of ischemic heart disease and other diseases of the circulatory system; Z82.3 Family history of stroke
CPT/HCPCS: 36415; 76937; 80048; 85025; 85610; 85730; 93005; 93459; 99152; 99153; C1760; C1769; C1894; J1644; J2250; J3010; J3490; J7030; Q0163; Q9967; C1725

== ENCOUNTER 2023-02-09 10:45 | Inpatient (IN) | payer MEDICARE, BC ==
[~2023-02-09] VITALS: Ht 170.2 cm; Wt 87.4 kg
[~2023-02-09 10:45] MED LIST changes: -CARV3.12 PO; -COL100C PO; -DICL100G15 TOP; -GARL1TAB2 PO; +ICOS1CAP PO; +ROSU40TA22 PO; +UBID100C16 PO; -lidoderm 5% patch TD
[2023-02-09] MEDS ORDERED: dexamethasone sod phosphate 10mg/ml inj IV STA (10:54)
[2023-02-09] MEDS ORDERED: ketorolac tromethamine 15mg/ml inj. IV ONE (10:55)
[2023-02-09] MEDS ORDERED: normal saline 1000ML IV soln IV ONE (10:55)
[2023-02-09] MEDS ORDERED: CefTRIAXone 2gm/D5W 50ml BAG 50 ML IV ONE (10:55)
[2023-02-09] MEDS ORDERED: diphenhydrAMINE 50 mg/ml inj IV ONE (11:10)
[2023-02-09] MEDS ORDERED: vancomycin inj 1,000 MG in normal saline 250ml IV soln 250 ML IV STA (11:13)
[2023-02-09] MEDS ORDERED: iohexol 300mg/ml 100ml inj. ONE (11:18)
[2023-02-09 11:27] LABS: BASOPHILS # (AUTO) 0.1 X10'3 (0-0.2); BASOPHILS % (AUTO) 0.3 % (0-1); EOSINOPHILS % (AUTO) 0 % (0-6); HEMATOCRIT 51.4 % (42.0-52.0); HEMOGLOBIN 17.4 g/dl (14.0-17.9); LYMPHOCYTES # (AUTO) 2.3 X10'3 (1.1-4.8); LYMPHOCYTES % (AUTO) 9.7 % (21-51); MEAN CORPUSCULAR HEMOGLOBIN 31.6 PG (27.0-31.0); MEAN CORPUSCULAR HGB CONC 33.8 g/dL (33.0-36.5); MEAN CORPUSCULAR VOLUME 93.4 FL (78-98); MEAN PLATELET VOLUME 9.5 FL (7.4-10.4); MONOCYTES # (AUTO) 1.9 X10'3 (0-0.9); NEUTROPHILS # (AUTO) 19.3 X10'3 (1.8-7.7); PLATELET COUNT 184 X10'3 (140-440); RED CELL DISTRIBUTION WIDTH 13.9 % (11.5-14.5); WHITE BLOOD COUNT 23.5 X10'3 (4.5-11.0)
[2023-02-09] MEDS ORDERED: vancomycin/NS 1 GM ADD-VANTAGE 250 ML IV ONE (11:30)
[2023-02-09 11:37] LABS: ALANINE AMINOTRANSFERASE 54 U/L (12-78); ALBUMIN/GLOBULIN RATIO 0.9 (1.1-1.5); ALKALINE PHOSPHATASE 98 IU/L (46-116); ANION GAP 12 (8-16); ASPARTATE AMINO TRANSFERASE 23 U/L (10-37); BLOOD UREA NITROGEN 17 MG/DL (7-18); BUN/CREATININE RATIO 11.7 (10.0-20.0); CALCIUM 9.3 MG/DL (8.5-10.1); CHLORIDE 100 MMOL/L (99-107); CREATININE 1.45 MG/DL (0.60-1.10); GLUCOSE 112 MG/DL (70-104); POTASSIUM 3.9 MMOL/L (3.5-5.1); SODIUM 138 MMOL/L (135-145); TOTAL CARBON DIOXIDE 25.7 MMOL/L (24-32); TOTAL PROTEIN 8.4 G/DL (6.4-8.2); eGFR 49 ML/MIN
[2023-02-09] MEDS ORDERED: HYDROcodone/acetaminophen 5mg/325mg tablet PO PRN (15:30)
[2023-02-09] MEDS ORDERED: morphine 2 MG/ML inj. syringe IV PRN ×2 (15:30)
[2023-02-09] MEDS ORDERED: HYDROcodone/acetaminophen 10/325mg tab PO PRN (15:30)
[2023-02-09] MEDS ORDERED: ondansetron/PF 4mg/2ml inj IV PRN (15:30)
[2023-02-09] MEDS ORDERED: acetaminophen 325mg tablet PO PRN ×2 (15:30)
[2023-02-09] MEDS ORDERED: magnesium hydroxide 30ml (MOM) UD suspension PO PRN (15:30)
[2023-02-09] MEDS ORDERED: mag hydrox/Alum hydrox/simeth 30ml oral suspension PO PRN (15:30)
[2023-02-09] MEDS ORDERED: CLINDAMYCIN 600mg IN NS 50ML 50 ML IV SCH (16:00)
[2023-02-09] MEDS ORDERED: ROSU40TA22 PO (16:09)
[2023-02-09] MEDS ORDERED: MELO-102 PO (16:09)
[2023-02-09] MEDS ORDERED: ASPI81TA52 PO (16:10)
[2023-02-09] MEDS ORDERED: ICOS1CAP2 PO (16:11)
[2023-02-09 19:00] VITALS: BP 141/71
[2023-02-09] MEDS ORDERED: atorvastatin 20mg tablet PO SCH (21:00)
[2023-02-09] MEDS: docusate sod 100mg capsule PO SCH (21:02)
[2023-02-09] MEDS: OMEGA-3/DHA/EPA/FISH OIL 1 EACH CAPSULE.DR PO SCH (21:45)
[2023-02-09] MEDS: dexamethasone sod phosphate 10mg/ml inj IV SCH (21:45)
[2023-02-09 22:00] VITALS: BP 125/57
[2023-02-10] MEDS: clindamycin 600mg/D5W 50ml 50 ML IV SCH ×2 (00:14→08:23)
[2023-02-10 02:00] VITALS: BP 115/52
[2023-02-10] MEDS: dexamethasone sod phosphate 10mg/ml inj IV SCH (02:46)
[2023-02-10 06:00] VITALS: BP 110/54
--- NOTE | 2023-02-10 06:29 | NUR ---
Reported off to Mely RAND. Patient is awake and alert on room air. In no apparent distress. Call light and items of frequent use within reach.
[2023-02-10 07:06] LABS: BASOPHILS # (AUTO) 0.1 X10'3 (0-0.2); BASOPHILS % (AUTO) 0.3 % (0-1); EOSINOPHILS % (AUTO) 0 % (0-6); HEMATOCRIT 44.7 % (42.0-52.0); HEMOGLOBIN 15.2 g/dl (14.0-17.9); LYMPHOCYTES # (AUTO) 1.7 X10'3 (1.1-4.8); LYMPHOCYTES % (AUTO) 7.5 % (21-51); MEAN CORPUSCULAR HEMOGLOBIN 31.9 PG (27.0-31.0); MEAN CORPUSCULAR HGB CONC 34.1 g/dL (33.0-36.5); MEAN CORPUSCULAR VOLUME 93.6 FL (78-98); MEAN PLATELET VOLUME 9.6 FL (7.4-10.4); MONOCYTES # (AUTO) 0.7 X10'3 (0-0.9); NEUTROPHILS # (AUTO) 20.3 X10'3 (1.8-7.7); NEUTROPHILS % (AUTO) 89.2 % (42-75); PLATELET COUNT 163 X10'3 (140-440); RED BLOOD COUNT 4.77 X10'6 (4.70-6.10); RED CELL DISTRIBUTION WIDTH 14.2 % (11.5-14.5); WHITE BLOOD COUNT 22.7 X10'3 (4.5-11.0)
[2023-02-10 07:13] LABS: ALBUMIN 3.1 G/DL (3.4-5.0); ANION GAP 9 (8-16); BLOOD UREA NITROGEN 23 MG/DL (7-18); CALCIUM 8.9 MG/DL (8.5-10.1); CHLORIDE 102 MMOL/L (99-107); CREATININE 1.44 MG/DL (0.60-1.10); GLUCOSE 154 MG/DL (70-104); POTASSIUM 3.8 MMOL/L (3.5-5.1); SODIUM 137 MMOL/L (135-145); TOTAL CARBON DIOXIDE 26.2 MMOL/L (24-32); eGFR 50 ML/MIN
[2023-02-10] MEDS ORDERED: aspirin 81mg, enteric-coated 1 TAB TABLET.DR PO SCH (08:00)
[2023-02-10] MEDS: docusate sod 100mg capsule PO SCH (08:22)
[2023-02-10] MEDS: OMEGA-3/DHA/EPA/FISH OIL 1 EACH CAPSULE.DR PO SCH (08:23)
[2023-02-10] MEDS ORDERED: CLIN-91 PO (08:51)
[2023-02-10] MEDS ORDERED: PRED10TA23 PO (08:51)
--- NOTE | 2023-02-10 09:10 | NUR ---
Discharge instructions discussed with pt . all questions answered. Follow up appointment discussed. pt states he understands all information. pt's spouse will be here to pick him up.
== END 2023-02-10 10:00 | disposition home or self-care (01) | DRG 153 ==
LOC: ER 10:46 → ED HOLD 15:34 → EDBEDREQ 18:21 → PCU 3S 19:09
PROVIDERS: ADMIT Internal Medicine; ATTEND Internal Medicine
PROC: BW2F1ZZ Computerized Tomography (CT Scan) of Neck using Low Osmolar Contrast (ICD-10-PCS; principal; 2023-02-09)
DX: J02.0 Streptococcal pharyngitis (principal); R59.1 Generalized enlarged lymph nodes; I25.10 Atherosclerotic heart disease of native coronary artery without angina pectoris; Z20.822 Contact with and (suspected) exposure to COVID-19; I10 Essential (primary) hypertension; E78.5 Hyperlipidemia, unspecified; Z88.2 Allergy status to sulfonamides; Z88.1 Allergy status to other antibiotic agents; Z91.030 Bee allergy status; Z95.1 Presence of aortocoronary bypass graft; Z82.49 Family history of ischemic heart disease and other diseases of the circulatory system; Z88.8 Allergy status to other drugs, medicaments and biological substances; Z79.899 Other long term (current) drug therapy; Z79.82 Long term (current) use of aspirin; I25.2 Old myocardial infarction
CPT/HCPCS: 36415; 70491; 80048; 80053; 83605; 84145; 85025; 87040; 87081; 87811; 87880; 99285; G0378; J0696; J1100; J1200; J1885; J3370; J3490; J7030; J7040; Q9967